=== PATIENT | female | born 1995 | race Caucasian/White ===

== ENCOUNTER 2024-11-26 06:08 | Day surgery (SDC) | payer OTHER ==
[~2024-11-26] VITALS: Ht 154.9 cm; Wt 73.4 kg
[~2024-11-26 06:08] MED LIST: ESCI10 PO; Lidocaine 1%-Epineph 1:100000 20 ML MDV ONE; Sodium Bicarb 8.4% 1 MEQ/ML 50 ML Vial ONE; TOPROL XL25 MG PO; VALACYCLOVIR1000 MG PO
[2024-11-26] MEDS ORDERED: Lactated Ringer's 1,000 ML IV ONE (06:46)
[2024-11-26] MEDS ORDERED: propofoL 20 ML IV ONE (07:13)
[2024-11-26] MEDS ORDERED: NS 500 ML IV ONE (07:15)
[2024-11-26] MEDS ORDERED: Midazolam HCl 1MG / ML 2ML Vial ONE (07:15)
[2024-11-26] MEDS ORDERED: Lidocaine HCl 2% 10 ML SDA INJ ONE ×3 (07:30)
[2024-11-26] MEDS ORDERED: Lidocaine HCl 2% 10 ML SDA ONE (07:30)
[2024-11-26] MEDS ORDERED: FentaNYL Citrate 50 MCG/ML 2 ML Injection ONE (07:31)
[2024-11-26] MEDS ORDERED: Ondansetron HCl 2 MG / ML 2ML Vial ONE (07:36)
[2024-11-26] MEDS ORDERED: Dexamethasone Sod Phos 10 MG/ML 1ML VIAL ONE (07:36)
[2024-11-26] MEDS ORDERED: HYDROcodone 5-APAP 325 TAB ONE (08:25)
--- NOTE | 2024-11-26 08:38 | NUR ---
11/26/24 0838 Sheeba Alexandre 5/325 GIVEN AT 0837- PATIENT TOLERATED PO SNACKS AND FLUID WELL
== END 2024-11-26 09:00 | disposition home or self-care (01) ==
LOC: ORSCSDS 06:08
PROVIDERS: Orthopaedic Surgery
PROC: 0LB60ZZ Excision of Left Lower Arm and Wrist Tendon, Open Approach (ICD-10-PCS; principal; 2024-11-26 07:30)
DX: M67.432 Ganglion, left wrist (principal); F32.A Depression, unspecified; K21.9 Gastro-esophageal reflux disease without esophagitis; I10 Essential (primary) hypertension; Z79.899 Other long term (current) drug therapy
CPT/HCPCS: 88304; A9270; J1100; J2003; J2250; J2405; J2704; J3010; J7040